=== PATIENT | female | born 1970 | race Caucasian/White ===

== ENCOUNTER 2017-09-13 13:05 | Emergency (ER) | payer MEDICAID ==
[~2017-09-13] VITALS: Ht 167.6 cm; Wt 68.0 kg
[2017-09-13 13:30] VITALS: BP 121/80
--- NOTE | 2017-09-13 13:52 | Emergency Room Report ---
History of Present Illness General Chief Complaint: Flu Like Symptoms Source: Patient Present Illness HPI Pt. presents to the ED c/o Right ear pain With associated fevers, chills, sore throat, nasal congestion, sinus congestion, headache and cough. Patient has been taking Tylenol for fevers and pain. Patient also reports generalized body aches. She denies recent travel she reports her son is an ill contact last week. Hx of cancer in remission. Denies CP, Palpitations, LOC, AMS, dizziness , Changes in Allergies: Coded Allergies: No Known Allergies (Unverified , 09/13/17) Patient History Past Medical History: see triage record Past Surgical History: none Pertinent Family History: none Immunizations: UTD Reviewed Nursing Documentation: PMH: Agreed, PSxH: Agreed Nursing Documentation-PMH Past Medical History: No Stated History Review of Systems All Other Systems: negative except mentioned in HPI Physical Exam Vital Signs Date Time Temp Pulse Resp B/P (MAP) Pulse Ox O2 Delivery O2 Flow Rate FiO2 09/13/17 13:13 98.4 98 18 121/80 96 Room Air 98.4 Sp02 EP Interpretation: reviewed, normal General Appearance: no apparent distress, alert, GCS 15, non-toxic Head: normocephalic, atraumatic Eyes: bilateral eye normal inspection, bilateral eye PERRL ENT: hearing grossly normal, normal voice, uvula midline, moist mucus membranes , nasal congestion, pharyngeal erythema, other - Right TM erythematous and bulging. Neck: full range of motion, no meningismus, no bony tend Respiratory: normal inspection, chest non-tender, lungs clear, normal breath sounds, no respiratory distress, no wheezing, speaking full sentences Cardiovascular #1: regular rate, rhythm Musculoskeletal: back normal, gait/station normal, normal range of motion, non- tender Neurologic: alert, oriented x3, responsive, motor strength/tone normal, sensory intact, speech normal, grossly normal Psychiatric: judgement/insight normal Skin: normal color, no rash, warm/dry, well hydrated Lymphatic: other - bilateral subparotid LAD. Medical Decision Making PA Attestation Dr. Heller is my supervising Physician whom patient management has been discussed with. Diagnostic Impression: Primary Impression: Otitis media Qualified Codes: H66.001 - Acute suppurative otitis media without spontaneous rupture of ear drum, right ear Additional Impressions: Fever and chills Sinus congestion ER Course Pt. presents to the ED c/o Right ear pain With associated fevers, chills, sore throat, nasal congestion, sinus congestion, headache and cough. Patient has been taking Tylenol for fevers and pain. Patient also reports generalized body aches. She denies recent travel she reports her son is an ill contact last week. Hx of cancer in remission. Denies CP, Palpitations, LOC, AMS, dizziness , Changes in Vision, Sensation, paresthesias, or a sudden severe headache. Ddx considered but are not limited to OM, OE, mastoiditis, TM perforation, FB Vital signs: are WNL, pt. is afebrile H&PE are most consistent with otitis media ORDERS: none required at this time, the diagnosis is clinical -OTOSCOPY: Right TM is erythematous and bulging. ED INTERVENTIONS: None required at this time. DISCHARGE: At this time pt. is stable for d/c to home. With PO ABX. Will provide printed patient care instructions, and any necessary prescriptions. Care plan and follow up instructions have been discussed with the patient prior to discharge. Last Vital Signs Date Time Temp Pulse Resp B/P (MAP) Pulse Ox O2 Delivery O2 Flow Rate FiO2 09/13/17 13:13 98.4 98 18 121/80 96 Room Air 98.4 Disposition: HOME, SELF-CARE Condition: Stable Scripts Oxymetazoline HCl (Afrin) 15 Ml Kouts 3 SPRAY NASAL TWICE A DAY, #15 SPRAY Do not use longer than 3 days. Prov: Jimena Bañuelos.A. 09/13/17 Acetaminophen* (TYLENOL EXTRA STRENGTH*) 500 Mg Tablet 500 MG ORAL Q6H, #20 TAB 0 Refills Prov: Jimena Bañuelos P.A. 09/13/17 Codeine/Promethazine Hcl* (PROMETHAZINE-CODEINE SYRUP*) 118 Ml Syrup 5 ML ORAL Q6H Y for For Cough, #120 ML 0 Refills Prov: Jimena Bañuelos.A. 09/13/17 Amoxicillin/Potassium Clav 875-125* (AUGMENTIN 875-125 TABLET*) 1 Each Tablet 1 TAB ORAL TWICE A DAY for 10 Days, #20 TAB Prov: Jimena BañuelosARaina 09/13/17 Referrals: [facility],REFERRING (PCP) Patient Instructions: Otitis Media, Adult, Pharyngitis, [id number] Additional Instructions: Take medications as directed. Follow up with a Primary Care Provider in 3-5 days, even if your symptoms have resolved. --Please review list of primary care clinics, if you do not already have a primary care provider Return sooner to ED if new symptoms occur, or current symptoms become worse. Do not drink alcohol, drive, or operate heavy machinery while taking Cough Syrup as this may cause drowsiness. - Please note that this Emergency Department Report was dictated using [employer] organizer technology software, occasionally this can lead to erroneous entry secondary to interpretation by the dictation equipment. Jimena Bañuelos Sep 13, 2017 13:52
[2017-09-13] MEDS ORDERED: TYLENOL EXTRA500 MG ORAL (13:54)
[2017-09-13] MEDS ORDERED: AFRIN NASAL SPR30 ML NASAL (13:54)
[2017-09-13] MEDS ORDERED: PROMETHAZINE-C118 M1 ORAL (13:54)
[2017-09-13] MEDS ORDERED: AUGMENTIN 875-1 EAC1 ORAL (13:54)
[2017-09-13 14:11] VITALS: BP 121/80
== END 2017-09-13 14:12 | disposition home or self-care (01) ==
LOC: EMR 13:38
DX: H66.91 Otitis media, unspecified, right ear (principal); R09.81 Nasal congestion; R50.9 Fever, unspecified
CPT/HCPCS: 99284